=== PATIENT | female | born 1970 | race Caucasian/White ===

== ENCOUNTER 2017-12-06 11:32 | Emergency (ER) | END 2017-12-06 15:10 | disposition home or self-care (01) ==

== ENCOUNTER 2017-12-11 14:16 | Emergency (ER) | END 2017-12-11 18:07 | disposition home or self-care (01) ==

== ENCOUNTER 2018-08-18 12:07 | Emergency (ER) | payer OTHER ==
[~2018-08-18] VITALS: Ht 162.6 cm; Wt 75.0 kg
[~2018-08-18 12:07] MED LIST: ALBU18HF INHALATION; PRED20TA PO
[2018-08-18 12:09] VITALS: BP 125/60; PULSE 82; RESP 18; Ht 162.6 cm; Wt 75.0 kg
--- NOTE | 2018-08-18 12:55 | ERD ---
ER Documentation Chief Complaint Chief Complaint intermittent left ankle pain/swelling x4 months, worsening x this am HPI 48-year-old female, with history of asthma and hyperlipidemia, presents to the emergency department, complaining of 4 months with intermittent episodes of spontaneous left ankle swelling, painless, no history of previous injury. Otherwise, the patient denies fever, chills, local erythema, warmth or tenderness. ROS All systems reviewed and are negative except as per history of present illness. Medications Home Meds Active Scripts Acetaminophen* (Tylenol*) 325 Mg Tablet, 2 TAB PO Q6 PRN for PAIN AND OR ELEVATED TEMP, #20 TAB Prov:MOMO MARTEL MD 08/18/18 Prednisone* (Prednisone*) 20 Mg Tab, 40 MG PO DAILY for 5 Days, TAB Prov:MOMO MARTEL MD 08/18/18 Prednisone* (Prednisone*) 20 Mg Tab, 40 MG PO DAILY for 5 Days, TAB Prov:KATY JACOB MD 12/11/17 Albuterol Sulfate* (Ventolin HFA*) 18 Gm Hfa.aer.ad, 2 PUFF INHALATION Q4H, #1 INHALER Prov:KATY JACOB MD 12/11/17 Allergies Allergies: Coded Allergies: Penicillins (Verified Allergy, Mild, RASH, 06/30/15) Uncoded Allergies: PCN (Allergy, Mild, RASH, 11/03/09) PMhx/Soc History of Surgery: Yes (NOSE) Anesthesia Reaction: No Hx Neurological Disorder: No Hx Respiratory Disorders: No Hx Cardiac Disorders: Yes (ASTHMA) Hx Psychiatric Problems: No Hx Miscellaneous Medical Probl: Yes (Hyperlipidemia) Hx Alcohol Use: No Hx Substance Use: No Hx Tobacco Use: No Smoking Status: Never smoker FmHx Family History: No diabetes, No coronary disease Physical Exam Vitals Vital Signs Date Temp Pulse Resp B/P (MAP) Pulse Ox O2 O2 Flow FiO2 Time Delivery Rate 08/18/18 99.0 82 18 125/60 98 12:09 (81) Physical Exam Const: No acute distress Head: Atraumatic Eyes: Normal Conjunctiva ENT: Normal External Ears, Nose and Mouth. Neck: Full range of motion. No meningismus. Resp: Clear to auscultation bilaterally Cardio: Regular rate and rhythm, no murmurs Abd: Soft, non tender, non distended. Normal bowel sounds Skin: No petechiae or rashes Back: No midline or flank tenderness Ext: Left ankle: Normal inspection, no edema, no erythema, full passive range of motion without pain, distal neurovascular exam intact. Otherwise, no cyanosis, or edema of the other extremities. Neur: Awake and alert Psych: Normal Mood and Affect Results 24 hrs DIAGNOSTIC IMAGING REPORT Patient: ELTON RUIZ : 1970 Age: 48 Sex: F MR #: [id number] DOS: 08/18/18 1237 Ordering MD: MOMO MARTEL MD Location: [facility] Room/Bed: PROCEDURE: XR Ankle. CLINICAL INDICATION: left ankle swelling TECHNIQUE: 3 views of the left ankle were performed. COMPARISON: None. FINDINGS: No acute appearing fracture. No dislocation. No significant arthropathy or erosive changes. Os peroneum. Moderate soft tissue swelling. No foreign body. IMPRESSION: Soft tissue swelling without evidence of acute fracture. RPTAT:AAJJ Physician Susan Date Time Electronically viewed and signed by Physician Susan on 08/18/2018 13:11 RF/ CC: MOMO MARTEL MD Procedures/MDM Vital signs stable. Differential diagnosis considered include gout, bursitis, osteoarthritis, rheumatoid arthritis, reactive arthritis, lupus, thyroid disease. Low suspicion for septic arthritis. During the ED course the patient remained stable, no new complaints. Results and clinical impression discussed with the patient who agrees with management. The patient is stable to be treated outpatient and will be discharged home. some side effects of prescribed medications (headache, rash, n ausea, vomiting, diarrhea, drowsiness, habituation, bleeding, hypertension, interactions with other medications) were reviewed. The patient was informed that the evaluation in the emergency department has been done to rule out an acute emergency, therefore, chronic conditions like malignancy or other diseases have not been evaluated; therefore, the patient was instructed to follow up with the primary care provider in the next 48h. If symptoms persist, worsen or new symptoms develop, then patient should return to the ED immediately. Instructions explained and given directly by me to the patient with acknowledgment and demonstrated understanding. Disclaimer: Inadvertent spelling and grammatical errors are likely due to EHR/dictation software use and do not reflect on the overall quality of patient care. Also, please note that the electronic time recorded on this note does not necessarily reflect the actual time of the patient encounter. Departure Diagnosis: Primary Impression: Bursitis of left ankle Condition: Stable Additional Instructions: Thank you very much for allowing us to participate in your care. Your health and safety is our top priority at [facility]. The evaluation in the emergency department has been done to rule out an acute emergency. Chronic, cci-[id number]-[id number] conditions may have not been evaluated; therefore, you need to follow up with a primary care provider in the next 48h. If symptoms persist, worsen or new symptoms develop, then patient should return to the ED immediately. Call your primary care doctor TOMORROW for an appointment during the next 2-4 days and bring all the information provided. Have prescriptions filled and follow precisely the directions on the label. If the symptoms get worse and your provider is unavailable, return to the Emergency Department immediately. MOMO MARTEL MD Aug 18, 2018 12:55
[2018-08-18] MEDS ORDERED: ACET325T33 PO (13:21)
[2018-08-18] MEDS ORDERED: PRED20TA PO (13:21)
== END 2018-08-18 13:27 | disposition home or self-care (01) ==
LOC: FTE 12:07
DX: M76.892 Other specified enthesopathies of left lower limb, excluding foot (principal); J45.909 Unspecified asthma, uncomplicated
CPT/HCPCS: 73610; Z7502